=== PATIENT | male | born 1965 | race Hispanic/Latino ===

== ENCOUNTER 2017-06-11 00:13 | Emergency (ER) | payer BC ==
[2017-06-11 01:16] VITALS: BP 129/80; PULSE 89; RESP 16; TEMP 98.2; O2SAT 99
--- NOTE | 2017-06-11 01:25 | ED PDOC ---
HPI: Psych/Substance Abuse Time Seen by Provider: 06/11/17 01:10 Chief Complaint (Nursing): Ingestion, Accidental Chief Complaint (Provider): Accidental Ingestion History Per: Patient History/Exam Limitations: no limitations Onset/Duration Of Symptoms: Hrs (prior to arrival) Additional Complaint(s): Chai Arellano is a 51 year old male, with a past medical history of hypertension , who presents to the emergency department after accidentally ingesting one extra pill of his blood pressure medication prior to arrival. Patient is currently asymptomatic and denies any nausea, vomit, diarrhea, headache, dizziness, chest pain, and abdominal pain. Patient states he doesn't feel like passing out. No further medical complaints. PMD: None provided. Past Medical History Reviewed: Historical Data, Nursing Documentation, Vital Signs Vital Signs: Last Vital Signs Temp 98.2 F 06/11/17 01:10 Pulse 89 06/11/17 01:16 Resp 16 06/11/17 01:16 BP 129/80 06/11/17 01:16 Pulse Ox 99 06/11/17 01:16 - Medical History PMH: HTN, Migraine - Family History Family History: States: Unknown Family Hx - Social History Ex-Smoker (has not smoked in the last 12 months): Yes Alcohol: Social Drugs: Denies - Home Medications Home Medications: Ambulatory Orders Medication Instructions Recorded Azilsartan Medoxomil [Edarbi] 1 tab PO DAILY 09/14/16 Nortriptyline HCl [Pamelor] 1 tab PO DAILY 09/14/16 - Allergies Allergies/Adverse Reactions: Allergies Allergy/AdvReac Type Severity Reaction Status Date / Time No Known Allergies Allergy Verified 09/14/16 09:03 Review of Systems Cardiovascular: Negative for: Chest Pain Gastrointestinal: Negative for: Nausea, Vomiting, Abdominal Pain Neurological: Negative for: Headache, Dizziness Physical Exam - Reviewed Nursing Documentation Reviewed: Yes Vital Signs Reviewed: Yes - Physical Exam Appears: Positive for: Well, Non-toxic, No Acute Distress Head Exam: Positive for: ATRAUMATIC, NORMAL INSPECTION, NORMOCEPHALIC Skin: Positive for: Normal Color, Warm, Dry Eye Exam: Positive for: EOMI, Normal appearance, PERRL ENT: Positive for: Normal ENT Inspection Neck: Positive for: Normal, Painless ROM, Supple Cardiovascular/Chest: Positive for: Regular Rate, Rhythm. Negative for: Murmur Respiratory: Positive for: Normal Breath Sounds. Negative for: Respiratory Distress Gastrointestinal/Abdominal: Positive for: Normal Exam, Bowel Sounds, Soft. Negative for: Tenderness Back: Positive for: Normal Inspection. Negative for: L CVA Tenderness, R CVA Tenderness Extremity: Positive for: Normal ROM. Negative for: Tenderness, Pedal Edema, Deformity Neurologic/Psych: Positive for: Alert, Oriented (x3). Negative for: Motor/ Sensory Deficits - ECG O2 Sat by Pulse Oximetry: 99 (RA) Pulse Ox Interpretation: Normal Medical Decision Making Medical Decision Making: Initial Impression: Accidental ingestion of regular blood pressure medication. Initial Plan: 0115 -patient is feeling better, is medically stable, and requires no further treatment in the ED at this time. Patient will be discharged home Scribe Attestation: Documented by Billy Carr, acting as a scribe for Rico Bejarano MD. Provider Scribe Attestation: All medical record entries made by the Scribe were at my direction and personally dictated by me. I have reviewed the chart and agree that the record accurately reflects my personal performance of the history, physical exam, medical decision making, and the department course for this patient. I have also personally directed, reviewed, and agree with the discharge instructions and disposition. 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
== END 2017-06-11 01:25 | disposition home or self-care (01) ==
LOC: H.ER 00:13
DX: F10.10 Alcohol abuse, uncomplicated (principal); I10 Essential (primary) hypertension